=== PATIENT | male | born 1935 | race Caucasian/White ===

== ENCOUNTER 2016-11-17 16:43 | Emergency (ER) | payer OTHER, MEDICARE ==
[~2016-11-17] VITALS: Ht 174 cm; Wt 105.2 kg
[~2016-11-17 16:43] MED LIST: AMLODIPINE BES2.5 MG PO; ASPIR 8181 MG PO; ATORVASTATIN CA20 MG PO; BLM PO; COMBIGAN 0.2%-0.5 ML OP; COUMADIN 5 MG TA5 MG PO; FENTANYL50 MCG/HR TOP; GABAPENTIN400 MG PO; GLIMEPIRIDE4 MG PO; HUMALOG MIX75/253 ML SC; LEVOTHYROXIN0.075 M1 PO; MOMETASONE FUROA0.1% TOP; OMEPRAZOLE40 MG PO; PERCOCET 325 MG1 TA2 PO; PREDNISONE10 MG PO
[2016-11-17] MEDS ORDERED: LANTUS SOL100 UNIT/1 SC (17:17)
[2016-11-17] MEDS ORDERED: ATORVASTATIN CA20 M1 PO (17:18)
[2016-11-17] MEDS ORDERED: GABAPENTIN400 M2 PO (17:19)
[2016-11-17] MEDS ORDERED: GLIMEPIRIDE4 M1 PO (17:19)
[2016-11-17] MEDS ORDERED: OMEPRAZOLE40 M1 PO (17:19)
[2016-11-17] MEDS ORDERED: LEVOTHYROXINE75 MCG PO (17:20)
[2016-11-17] MEDS ORDERED: AMLODIPINE BESYL5 M1 PO (17:20)
[2016-11-17] MEDS ORDERED: HUMALOG MI100 UNIT/3 SC (17:21)
[2016-11-17] MEDS ORDERED: SIMBRINZA 1%-0.28 ML OPH (17:21)
[2016-11-17] MEDS ORDERED: OXYCODONE-ACET1 EACH PO (17:22)
[2016-11-17] MEDS ORDERED: METOPROLOL TART50 M1 PO (17:22)
[2016-11-17] MEDS ORDERED: FENTANYL1 EAC3 TOP (17:22)
[2016-11-17] MEDS ORDERED: CENTRUM SILVER1 EAC3 PO (17:23)
[2016-11-17] MEDS ORDERED: XARELTO15 M2 PO (17:23)
[2016-11-17] MEDS ORDERED: FISH OIL500 M1 PO (17:24)
[2016-11-17 17:42] LABS: ABSOLUTE BASOPHIL COUNT 0 /CUMM (0.0-0.2); ABSOLUTE EOSINOPHIL COUNT 0.2 /CUMM (0.0-0.7); ABSOLUTE GRANULOCYTE CT 4.9 /CUMM (1.4-6.5); ABSOLUTE LYMPH COUNT 2.6 /CUMM (1.2-3.4); ABSOLUTE MONOCYTE COUNT 0.8 /CUMM (0.10-0.60); BASOPHIL % 0.3 % (0.0-2.0); EOSINOPHIL % 2.6 % (0-5); GRANULOCYTE % 57.7 % (42.2-75.2); HEMATOCRIT 38.3 % (42-52); MEAN CORPUSCULAR HGB 29.5 PG (27.0-31.0); MEAN CORPUSCULAR VOLUME 89.2 FL (80.0-94.0); MEAN PLATELET VOLUME 10.6 FL (7.4-10.4); PLATELET COUNT 125 /CUMM (130-400); RBC DISTRIBUTION WIDTH 13.3 % (11.5-14.5); RED BLOOD CELL CT 4.29 /CUMM (4.70-6.10); WHITE BLOOD CELL COUNT 8.5 /CUMM (4.8-10.8)
--- NOTE | 2016-11-17 18:06 | RADIOLOGY REPORT ---
EXAMINATION: XR CHEST CLINICAL INFORMATION: 81-year-old male presented with cough, crackles at left lower lobe. Evaluate for pneumonia. COMPARISON: Chest done on 04/28/2015. TECHNIQUE: 2 views of the chest, 3 images were obtained. FINDINGS: Both lung nolasco are symmetrically expanded and appear clear. The cardiomediastinal silhouette is within normal limits. There is no pleural effusion present. Multilevel degenerative changes are noted in the spine. No significant change since prior study. IMPRESSION: No acute cardiopulmonary disease.
--- NOTE | 2016-11-17 18:09 | ED INFLUENZA/URI COMPLAINT ---
History of Present Illness General Chief Complaint: Upper Respiratory Sx/Fever Stated Complaint: SORE THROAT; FEVER Source: patient Exam Limitations: no limitations Vital Signs & Intake/Output Vital Signs & Intake/Output ED Intake and Output 11/18 0000 11/17 1200 Intake Total Output Total Balance Patient 232 lb Weight Allergies Coded Allergies: NO KNOWN ALLERGIES (11/17/16) Reconcile Medications Amlodipine Besylate 5 MG TABLET 1 TAB PO DAILY BP (Reported) Atorvastatin Calcium 20 MG TABLET 1 TAB PO QPM CHOLESTEROL (Reported) Brinzolamide/Brimonidine Tart (Simbrinza 1%-0.2% Eye Drops) 1 %-0.2 % DROPS.SUSP 1 DROP OPH BID BOTH EYES (Reported) Fentanyl 50 MCG/HOUR PATCH.TD72 1 PAT TOP Q3D PAIN (Reported) Gabapentin 400 MG CAPSULE 1 CAP PO TID NERVE PAIN (Reported) Glimepiride 4 MG TABLET 1 TAB PO BID DM (Reported) Insulin Glargine,Hum.rec.anlog (Lantus Solostar) 100 UNIT/ML (3 ML) INSULN.PEN 30 UNIT SC QPM DM (Reported) Insulin NPL/Insulin Lispro (Humalog Mix 75-25 Kwikpen) 100 UNIT/ML (75-25) INSULN.PEN 60 UNITS SC BID DM (Reported) Levothyroxine Sodium 75 MCG TABLET 1 TAB PO DAILY THYROID (Reported) Metoprolol Tartrate 50 MG TABLET 1 TAB PO DAILY BP (Reported) Multivit-Min/FA/Lycopen/Lutein (Centrum Silver Tablet) 0.4 MG-300 MCG-250 MCG TABLET 1 TAB PO DAILY SUPPLEMENT (Reported) [place]-3 Fatty Acids (Fish Oil) (Unknown Strength) CAPSULE (Unknown Dose) PO BID SUPPLEMENT (Reported) Omeprazole 40 MG CAPSULE. 1 CAP PO PRN GI (Reported) Oxycodone HCl/Acetaminophen (Oxycodone-Acetaminophen 5-325) 5 MG-325 MG TABLET 1 TAB PO BID PAIN (Reported) Rivaroxaban (Xarelto) 15 MG TABLET 1 TAB PO DAILY BLOOD THINNER (Reported) Triage Note: TRIAGE: PT TO ER WITH DAUGHTER AND NEPHEW. C/C HEAD PAIN, COUGHING, SOB, SORE THROAT, ESOPHAGEAL PAIN AND FEVER. ONSET 4 DAYS AGO WITH COUGHING. COUGH HAS BEEN NONPRODUCTIVE. LAST DOSE OF ADVIL APPROX 1 HR FISHER SEAL. TEMP 98.2 AT TRIAGE. Triage Nurses Notes Reviewed? yes HPI: 81-year-old male with 4 days of flulike illness, headaches, congestion, sore throat, nausea, decreased appetite, coughing congestion. Denies abdominal pain. He is taking [id number] medication with some relief. He took Tylenol prior to arrival, stated his temperature was 101 earlier today. He has a sick contact with the flu. His symptoms are going on for 4 days. He is drinking large amounts of water. He does not feel dehydrated. Symptoms are moderate (HOLLY LINARES) Past History Travel History Traveled to [place] past 21 day No Medical History Any Pertinent Medical History? see below for history Neurological: NONE EENT: NONE Cardiovascular: hypertension, PVD Respiratory: NONE Gastrointestinal: NONE Hepatic: NONE Renal: NONE Musculoskeletal: L LEG FX/SX/HDWE, R AKA Psychiatric: NONE Endocrine: diabetes Blood Disorders: DVT Cancer(s): NONE JR. SYSTEMS ADMINISTRATOR/Reproductive: NONE Surgical History Surgical History: R BKA L LEG FX/SX/RODS Psychosocial History What is your primary language Hong Konger Tobacco Use: Never used ETOH Use: denies use Illicit Drug Use: denies illicit drug use Family History Hx Contributory? No (HOLLY LINARES) Review of Systems Review of Systems Constitutional: Reports: see HPI. EENTM: Reports: see HPI. Respiratory: Reports: see HPI. Cardiovascular: Reports: no symptoms. GI: Reports: no symptoms. Genitourinary: Reports: no symptoms. Musculoskeletal: Reports: no symptoms. Skin: Reports: no symptoms. Neurological/Psychological: Reports: no symptoms. Hematologic/Endocrine: Reports: no symptoms. Immunologic/Allergic: Reports: no symptoms. All Other Systems: Reviewed and Negative (HOLLY LINARES) Physical Exam Physical Exam General Appearance: well developed/nourished, no apparent distress, alert, awake , comfortable Head: atraumatic, normal appearance Eyes: Bilateral: normal appearance, PERRL. Ears, Nose, Throat: moist mucous membrane, hearing grossly normal, Tympanic normal, pharyngeal erythema (MILD), NO PERITONSILLAR ABSCESS. nO DIFFICULTY SWALLOWING Neck: normal inspection, supple, full range of motion, trachea midline Respiratory: chest non-tender, no respiratory distress, crackles (MILD LLL) Cardiovascular: regular rate/rhythm Back: normal inspection, normal range of motion Extremities: normal inspection, normal capillary refill, normal range of motion, no edema, R AKA NOTED Neurologic/Psych: no motor/sensory deficits, awake, alert, oriented x 3 Skin: intact, normal color, warm/dry Lymphatic: no anterior cervical kalina Core Measures Severe Sepsis Present: No Septic Shock Present: No (PHOENIX VILLALOBOS,HOLLY) Progress Differential Diagnosis: influenza, meningitis, neutropenia, otitis, pneumonia, pharyngitis, sinusitis Plan of Care: Laboratory Tests 11/17/16 2019: Lactic Acid Cancelled Diagnostic Imaging: Viewed by Me: Radiology Read. Discussed w/RAD: Radiology Read. CXR Impression: PATIENT: YASH NICOLE PRESENT AGE: 81 PATIENT ACCOUNT NO: [id number] : 33 LOCATION: [facility] ORDERING PHYSICIAN: HOLLY VILLALOBOS SERVICE DATE: 11/17/16 EXAM TYPE: RAD - XRY-CHEST XRAY, PA AND LATERAL EXAMINATION: XR CHEST CLINICAL INFORMATION: 81-year-old male presented with cough, crackles at left lower lobe. Evaluate for pneumonia. COMPARISON: Chest done on 04/28/2015. TECHNIQUE: 2 views of the chest, 3 images were obtained. FINDINGS: Both lung nolasco are symmetrically expanded and appear clear. The cardiomediastinal silhouette is within normal limits. There is no pleural effusion present. Multilevel degenerative changes are noted in the spine. No significant change since prior study. IMPRESSION: No acute cardiopulmonary disease. DICTATED BY: KAREEM WILCOX MD DATE/TIME DICTATED:1801 MANAGER CORPORATE STRATEGY:KATIE Initial ED EKG: NSR, rate (65), no ST T wave changes Rhythm Strip: normal sinus rhythm Comments: Patient's workup is essentially normal. He does have mild increase in his creatinine from baseline 1.3-1.5. He states he does not know of any previous kidney issues. I recommended that he is not taking any Advil and follows up with his primary care doctor in the next 2 weeks, he is to take plenty of IV fluids. His flu test was negative, his rapid strep was negative, cultures were sent, blood cultures were sent, his exam is largely benign except for mild crackles in his left lung but his chest x-ray is negative. His white count is normal. He likely has mild flulike virus and does not require any antibiotics at this time. He should return with worsening symptoms or follow up with his primary care doctor this week. NAVARRO MAZARIEGOS (HOLLY LINARES) Departure Departure Disposition: HOME OR SELF CARE Condition: Stable Clinical Impression Primary Impression: Viral syndrome Referrals: CAMILLE KWON,MANJU Perry (PCP/Family) Additional Instructions: TYLENOL NEEDED , DRINK PLENTY OF FLUIDS. AVOID MOTRIN/ADVIL AND ALEVE YOUR KIDNEY FUNCTION WAS SLIGHTLY ELEVATED TODAY TO 1.5 (LAST TEST WAS 1.2 3 YEARS AGO). PLEASE HAVE THIS RECHECKED IN 2 WEEKS BY YOUR DOCTOR TO ENSURE IT IS NOT GETTING WORSE. RETURN WITH CONTINUED FEVER OR FLU LIKE ILLNESS, VOMITING , SHORTNESS OF BREATH OR DIFFICLUTY SWALLOWING. Departure Forms: Customer Survey General Discharge Information (HOLLY LINARES) PA/ZOOLOGY PROFESSOR Co-Sign Statement Statement: ED Attending supervision documentation- [X] I saw and evaluated the patient. I have also reviewed all the pertinent lab results and diagnostic results. I agree with the findings and the plan of care as documented in the PA's/ZOOLOGY PROFESSOR's documentation. [X] I have reviewed the ED Record and agree with the PA's/ZOOLOGY PROFESSOR's documentation. [] Additions or exceptions (if any) to the PAs/ZOOLOGY PROFESSOR's note and plan are summarized below: [] (DELILAH KWON,MARIO Parker) Additional Instructions: TYLENOL NEEDED , DRINK PLENTY OF FLUIDS. AVOID MOTRIN/ADVIL AND ALEVE YOUR KIDNEY FUNCTION WAS SLIGHTLY ELEVATED TODAY TO 1.5 (LAST TEST WAS 1.2 3 YEARS AGO). PLEASE HAVE THIS RECHECKED IN 2 WEEKS BY YOUR DOCTOR TO ENSURE IT IS NOT GETTING WORSE. RETURN WITH CONTINUED FEVER OR FLU LIKE ILLNESS, VOMITING , SHORTNESS OF BREATH OR DIFFICLUTY SWALLOWING. Departure Forms: Customer Survey General Discharge Information
[2016-11-17 18:44] VITALS: BP 174/81
== END 2016-11-17 19:01 ==
LOC: ERH 16:43
PROVIDERS: Physician Assistant Surgical
DX: B34.9 Viral infection, unspecified (principal)
CPT/HCPCS: 87040; 87804; 87804-59; 93005; 93010

== ENCOUNTER 2018-01-03 12:55 | Emergency (ER) | payer OTHER, MEDICARE ==
[~2018-01-03] VITALS: Ht 172.7 cm; Wt 101.2 kg
[~2018-01-03 12:55] MED LIST changes: +AMLODIPINE BESYL5 M1 PO; +ATORVASTATIN CA20 M1 PO; +CENTRUM SILVER1 EAC3 PO; +FENTANYL1 EAC3 TOP; +FISH OIL500 M1 PO; +GABAPENTIN400 M2 PO; +GLIMEPIRIDE4 M1 PO; +GOLYTELY SOLU4000 ML PO; +HUMALOG MI100 UNIT/3 SC; +LANTUS SOL100 UNIT/1 SC; +LEVOTHYROXINE75 MCG PO; +METOPROLOL TART50 M1 PO; +MIRALAX119 GM PO; +OMEPRAZOLE40 M1 PO; +OXYCODONE-ACET1 EACH PO; +SIMBRINZA 1%-0.28 ML OPH; +XARELTO15 M2 PO
[2018-01-03 16:32] VITALS: BP 165/92
--- NOTE | 2018-01-03 16:37 | ED NOSE COMPLAINT ---
History of Present Illness General Chief Complaint: General Adult Stated Complaint: " I FEEL LIKE SOMETHING IS STUCK IN MY NOSE" Source: patient, aid Exam Limitations: no limitations Vital Signs & Intake/Output Vital Signs & Intake/Output Vital Signs Date Time Temp Pulse Resp B/P B/P Pulse O2 O2 Flow FiO2 Mean Ox Delivery Rate 01/03 1632 97.5 65 18 165/92 95 Room Air 01/03 1414 96.7 78 18 139/87 95 Room Air ED Intake and Output 01/04 0000 01/03 1200 Intake Total 200 Output Total Balance 200 Intake, Oral 200 Patient 223 lb Weight Weight Reported by Patient Measurement Method Allergies Coded Allergies: NO KNOWN ALLERGIES (11/17/16) Reconcile Medications Amlodipine Besylate 5 MG TABLET 1 TAB PO DAILY BP (Reported) Amoxicillin/Potassium Clav (Augmentin 875-125 Tablet) 875 MG-125 MG TABLET 1 TAB PO BID SINSUITIS Atorvastatin Calcium 20 MG TABLET 1 TAB PO QPM CHOLESTEROL (Reported) Brinzolamide/Brimonidine Tart (Simbrinza 1%-0.2% Eye Drops) 1 %-0.2 % DROPS.SUSP 1 DROP OPH BID BOTH EYES (Reported) Fentanyl 50 MCG/HOUR PATCH.TD72 1 PAT TOP Q3D PAIN (Reported) Fluticasone Propionate (Flonase Allergy Relief) 50 MCG/ACTUATION SPRAY.SUSP 2 SPRAY NASB ONCE DAILY PRN CONGESTION Gabapentin 400 MG CAPSULE 1 CAP PO TID NERVE PAIN (Reported) Glimepiride 4 MG TABLET 1 TAB PO BID DM (Reported) Insulin Glargine,Hum.rec.anlog (Lantus Solostar) 100 UNIT/ML (3 ML) INSULN.PEN 30 UNIT SC QPM DM (Reported) Insulin NPL/Insulin Lispro (Humalog Mix 75-25 Kwikpen) 100 UNIT/ML (75-25) INSULN.PEN 60 UNITS SC BID DM (Reported) Levothyroxine Sodium 75 MCG TABLET 1 TAB PO DAILY THYROID (Reported) Metoprolol Tartrate 50 MG TABLET 1 TAB PO DAILY BP (Reported) Multivit-Min/FA/Lycopen/Lutein (Centrum Silver Tablet) 0.4 MG-300 MCG-250 MCG TABLET 1 TAB PO DAILY SUPPLEMENT (Reported) [place]-3 Fatty Acids (Fish Oil) (Unknown Strength) CAPSULE (Unknown Dose) PO BID SUPPLEMENT (Reported) Omeprazole 40 MG CAPSULE.DR 1 CAP PO PRN GI (Reported) Oxycodone HCl/Acetaminophen (Oxycodone-Acetaminophen 5-325) 5 MG-325 MG TABLET 1 TAB PO BID PAIN (Reported) Peg 3350/Na Sulf,Bicarb,Cl/KCl (Golytely Solution) 236-22.74G SOLN.RECON 1 KIT PO X1 PRN CONSTIPATION Polyethylene Glycol 3350 (Miralax) 17 GRAM/DOSE POWDER 17 GM PO BID CONSTIPATION mix with water, juice, soda, coffee or tea Rivaroxaban (Xarelto) 15 MG TABLET 1 TAB PO DAILY BLOOD THINNER (Reported) Triage Note: PT PRESENTS TO THE ER "IT FEELS LIKE SOMETHING IS IN MY NOSE AND LEFT EYE." PT THINKS ITS A BUG. Triage Nurses Notes Reviewed? yes Onset: Abrupt Duration: week(s): (2), changing over time, continues in ED Timing: single episode today Injury Environment: home Severity: mild, moderate Severity Numbers: 4 No Modifying Factors: none HPI: 82-year-old male past medical history of hypertension, CVA, DVT, diabetes presents for evaluation of congestion left naris and left maxillary sinus pressure. Patient states that he'll be going on for the past 2 weeks. He states that he feels like there is a foreign body in his nose. He denies any trauma to the area putting anything in his nose or picking his nose. No epistaxis. No fever. No chest pain shortness of breath. Has not taken any medicine for this. He states that it feels like there is "bugs crawling in my left nostril into my left sinus". His mental status is at baseline according to his aid. No nausea vomiting or diarrhea. No rashes. (Todd Benson) Past History Travel History Traveled to [place] past 21 day No Medical History Any Pertinent Medical History? see below for history Neurological: CVA, delerium, electrolyte abnormalities EENT: NONE Cardiovascular: hypertension, PVD Respiratory: NONE Gastrointestinal: constipation Hepatic: NONE Renal: NONE Musculoskeletal: L LEG FX/SX/HDWE R AKA Psychiatric: NONE Endocrine: diabetes Blood Disorders: DVT Cancer(s): NONE HOTEL MAINTENANCE WORKER/Reproductive: NONE Surgical History Surgical History: R BKA L LEG FX/SX/RODS Psychosocial History What is your primary language Omani Tobacco Use: Never used Family History Hx Contributory? No (Todd Benson) Review of Systems Review of Systems Constitutional: Reports: no symptoms. EENTM: Reports: nasal congestion, nasal pain. Respiratory: Reports: no symptoms. Cardiovascular: Reports: no symptoms. GI: Reports: no symptoms. Genitourinary: Reports: no symptoms. Musculoskeletal: Reports: no symptoms. Skin: Reports: no symptoms. Neurological/Psychological: Reports: no symptoms. Hematologic/Endocrine: Reports: no symptoms. Immunologic/Allergic: Reports: no symptoms. All Other Systems: Reviewed and Negative (Todd Benson) Physical Exam Physical Exam General Appearance: well developed/nourished, no apparent distress, alert, awake Head: atraumatic, normal appearance Eyes: Bilateral: normal appearance, PERRL, EOMI. Ears: Bilateral: canal normal, Tympanic normal. Nose: discharge (white), the nasal mucosa is mildly erythematous and boggy. There is small amount of whitish clear discharge, the left maxillary sinus is tender to palpation Mouth/Throat: normal mouth inspection, pharynx normal Neck: normal inspection, supple, full range of motion Cardiovascular/Respiratory: normal breath sounds, normal peripheral pulses, regular rate/rhythm, no respiratory distress Gastrointestinal: soft, nontender, nondistended Back: normal inspection, normal range of motion Neurologic/Psych: no motor/sensory deficits, awake, alert, oriented x 3, normal gait Skin: intact, normal color, warm/dry (Todd Benson) Progress Differential Diagnoses I considered the following diagnoses in my evaluation of the patient: [Sinusitis , nasal foreign body, dacryocystitis, viral URI, sinus mass] Plan of Care: Orders Procedure Date/time Status URINALYSIS 01/04 1644 Complete COMPREHENSIVE METABOLIC PANEL 01/04 1644 Complete CBC WITHOUT DIFFERENTIAL 01/04 1644 Complete Laboratory Tests 01/03/18 1720: Urine Color YEL, Urine Clarity CLEAR, Urine pH 6.0, Ur Specific [place] >= 1.030 , Urine Protein 100 H, Urine Ketones NEG, Urine Nitrite NEG, Urine Bilirubin NEG, Urine Urobilinogen 0.2, Ur Leukocyte Esterase NEG, Ur Microscopic SEDIMENT EXAMINED, Urine RBC FEW H, Urine WBC RARE, Ur Epithelial Cells RARE, Urine Hemoglobin NEG, Urine Glucose NEG 01/03/18 1700: Anion Gap 10, Estimated GFR 41 L, BUN/Creatinine Ratio 18.8, Glucose 129 H, Calcium 9.2, Total Bilirubin 0.6, AST 64 H, ALT 53, Alkaline Phosphatase 77, Total Protein 7.6, Albumin 4.2, Globulin 3.4, Albumin/Globulin Ratio 1.2, CBC w Diff NO MAN DIFF REQ, RBC 4.44 L, MCV 89.4, MCH 30.0, MCHC 33.5, RDW 13.3, MPV 10.8 H, Gran % 47.4, Lymphocytes % 37.2, Monocytes % 11.3 H, Eosinophils % 3.4 , Basophils % 0.7, Absolute Granulocytes 4.4, Absolute Lymphocytes 3.5 H, Absolute Monocytes 1.1 H, Absolute Eosinophils 0.3, Absolute Basophils 0.1 Patient seen and evaluated. He has left-sided maxillary sinus tenderness. No foreign bodies noted. He is afebrile nontoxic-appearing. Basic blood work is within normal limits. A CT scan of the sinuses does show some signs of sinusitis. Patient be covered with Augmentin. Follow-up with ear nose and throat. Flonase for congestion and sinus pressure apply warm compresses Tylenol for pain/fever. Discussed return precautions. Case discussed with Dr. Berry he agrees. Diagnostic Imaging: Viewed by Me: CT Scan. Discussed w/RAD: CT Scan. Radiology Impression: PATIENT: YASH NICOLE PRESENT AGE : 82 PATIENT ACCOUNT NO: [id number] : 33 LOCATION: [facility] ORDERING PHYSICIAN: Todd VILLALOBOS SERVICE DATE: 01/03/18 EXAM TYPE: CAT - CT FACE/SINUS WITHOUT CONT EXAMINATION: CT SINUS WITHOUT CONTRAST CLINICAL INFORMATION: Sinusitis, Foreign body COMPARISON: None TECHNIQUE: Multidetector helical imaging was performed in the axial plane with generation of coronal and sagittal reformatted images. DLP: 348.64 mGy-cm FINDINGS: FRONTAL SINUSES AND DRAINAGE PATHWAYS: The left frontal sinus is developed an area and a clear. MAXILLARY SINUSES AND DRAINAGE PATHWAYS: Normal. The infundibula are patent. ETHMOID SINUSES: Minimal mucosal thickening of multiple bilateral ethmoid air cells noted. No air-fluid level. The periosteal lining is normal. SPHENOID SINUSES AND DRAINAGE PATHWAYS: Normal. NASAL CAVITY/NASOPHARYNX: Mild-to- moderate mucosal congestion of the nasal turbinates noted. There is mild nasal septal deviation towards right side. The nasopharynx is symmetric. ADDITIONAL RELEVANT FINDINGS: The TMJs articulate normally. The orbits and skull base soft tissues are unremarkable. The middle ear cavities and mastoid air cells are clear. Limited evaluation demonstrates no acute intracranial findings. Multiple dental fillings of mandibular and maxillary teeth noted. Partial visualization of degenerative changes of the upper cervical spine. IMPRESSION: Mild to moderate mucosal congestion of nasal turbinate. Mild mucosal thickening of ethmoid air cells. The paranasal sinuses are otherwise clear. No air-fluid level. No radiodense foreign body. DICTATED BY: Luana Appiah MD DATE/TIME DICTATED:01/03/181808 ACTUARIAL CONSULTANT:KATIE DATE/TIME TRANSCRIBED:1808 CONFIDENTIAL, DO NOT COPY WITHOUT APPROPRIATE AUTHORIZATION. < Electronically signed in Other Vendor System> SIGNED BY: Luana Appiah MD 01/03/181821 Initial ED EKG: none (Todd Benson) Departure Departure Disposition: HOME OR SELF CARE Condition: Stable Clinical Impression Primary Impression: Sinusitis Qualifiers: Sinusitis location: maxillary Chronicity: acute Recurrence: non- recurrent Qualified Code: J01.00 - Acute maxillary sinusitis, unspecified Referrals: Halie KWON,Chris Rosen MD,Juan (PCP/Family) Additional Instructions: Take antibiotics as directed for course. Flonase as needed for congestion. Make a follow-up APPT with your primary care doctor and provided EAR nose and throat doctor as soon as possible. Monitor symptoms return with any concerns. Departure Forms: Customer Survey General Discharge Information Prescriptions: Current Visit Scripts Amoxicillin/Potassium Clav (Augmentin 875-125 Tablet) 1 TAB PO BID #14 TAB Fluticasone Propionate (Flonase Allergy Relief) 2 SPRAY NASB ONCE DAILY PRN CONGESTION #1 BOT (Todd Benson) PA/EMERGENCY ROOM TECH Co-Sign Statement Statement: ED Attending supervision documentation- [X] I saw and evaluated the patient. I have also reviewed all the pertinent lab results and diagnostic results. I agree with the findings and the plan of care as documented in the PA's/EMERGENCY ROOM TECH's documentation. Patient presents for evaluation of sinus pressure and congestion. Physical examination reveals a comfortable appearing patient with no apparent rhinorrhea. [] I have reviewed the ED Record and agree with the PA's/EMERGENCY ROOM TECH's documentation. [] Additions or exceptions (if any) to the PAs/EMERGENCY ROOM TECH's note and plan are summarized below: [] (Kristi KWON,Jere Daily)
[2018-01-03 17:08] LABS: ABSOLUTE BASOPHIL COUNT 0.1 /CUMM (0.0-0.2); ABSOLUTE EOSINOPHIL COUNT 0.3 /CUMM (0.0-0.7); ABSOLUTE GRANULOCYTE CT 4.4 /CUMM (1.4-6.5); ABSOLUTE LYMPH COUNT 3.5 /CUMM (1.2-3.4); ABSOLUTE MONOCYTE COUNT 1.1 /CUMM (0.10-0.60); BASOPHIL % 0.7 % (0.0-2.0); EOSINOPHIL % 3.4 % (0-5); GRANULOCYTE % 47.4 % (42.2-75.2); HEMATOCRIT 39.7 % (42-52); MEAN CORPUSCULAR HGB CONC 33.5 G/DL (33.0-37.0); MEAN CORPUSCULAR VOLUME 89.4 FL (80.0-94.0); MEAN PLATELET VOLUME 10.8 FL (7.4-10.4); PLATELET COUNT 138 /CUMM (130-400); RBC DISTRIBUTION WIDTH 13.3 % (11.5-14.5); RED BLOOD CELL CT 4.44 /CUMM (4.70-6.10); WHITE BLOOD CELL COUNT 9.4 /CUMM (4.8-10.8)
--- NOTE | 2018-01-03 18:22 | CT SCAN REPORT ---
EXAMINATION: CT SINUS WITHOUT CONTRAST CLINICAL INFORMATION: Sinusitis, Foreign body COMPARISON: None TECHNIQUE: Multidetector helical imaging was performed in the axial plane with generation of coronal and sagittal reformatted images. DLP: 348.64 mGy-cm FINDINGS: FRONTAL SINUSES AND DRAINAGE PATHWAYS: The left frontal sinus is developed an area and a clear. MAXILLARY SINUSES AND DRAINAGE PATHWAYS: Normal. The infundibula are patent. ETHMOID SINUSES: Minimal mucosal thickening of multiple bilateral ethmoid air cells noted. No air-fluid level. The periosteal lining is normal. SPHENOID SINUSES AND DRAINAGE PATHWAYS: Normal. NASAL CAVITY/NASOPHARYNX: [id number] mucosal congestion of the nasal turbinates noted. There is mild nasal septal deviation towards right side. The nasopharynx is symmetric. ADDITIONAL RELEVANT FINDINGS: The TMJs articulate normally. The orbits and skull base soft tissues are unremarkable. The middle ear cavities and mastoid air cells are clear. Limited evaluation demonstrates no acute intracranial findings. Multiple dental fillings of mandibular and maxillary teeth noted. Partial visualization of degenerative changes of the upper cervical spine. IMPRESSION: Mild to moderate mucosal congestion of nasal turbinate. Mild mucosal thickening of ethmoid air cells. The paranasal sinuses are otherwise clear. No air-fluid level. No radiodense foreign body.
[2018-01-03] MEDS ORDERED: AUGMENTIN 875-1 EACH PO (18:35)
[2018-01-03] MEDS ORDERED: FLONASE ALLERG9.9 ML NASB (18:35)
== END 2018-01-03 18:44 ==
LOC: ERH 12:55
PROVIDERS: Physician Assistant Medical
DX: J32.9 Chronic sinusitis, unspecified (principal)
CPT/HCPCS: 81001

== ENCOUNTER → 2018-05-06 | Day surgery (SDC) | payer OTHER, MEDICARE ==
[~2018-05-06] VITALS: Ht 177.8 cm; Wt 93.0 kg
[~2018-05-06] MED LIST changes: +AUGMENTIN 875-1 EACH PO; +FLONASE ALLERG9.9 ML NASB
--- NOTE | 2018-05-06 12:35 | Operative Report ---
Operative/Inv Procedure Report Surgery Date: 05/06/18 Name of Procedure: Cataract extraction lens implantation trabeculectomy with mitomycin-C left eye Pre-Operative Diagnosis: Age-related cataract and poorly controlled glaucoma left eye 20/80 vision Post-Operative Diagnosis: Same Estimated Blood Loss: none Surgeon/General Car Supervisor Yard: Gianni Cormier MD Anesthesia: local monitored anesthesi, Subtenon's anesthesia Complications: None Operative/Procedure Note Note: The patient had uncontrolled intraocular pressure and was on maximal medical therapy. She was consented for cataract extraction and trabeculectomy of the left eye with mitomycin-C. Mitomycin was used in this case because the patient was having concurrent intraocular surgery. The patient was brought to the operating room and standard monitoring equipment was attached. The patient was prepped and draped in the usual fashion for sterile intraocular surgery. A lid speculum was used to retract the lids. A small temporal incision was made with an I- knife and non-preserved lidocaine was introduced into the anterior chamber to provide anesthesia. The patient was asked to look down. Conjunctiva and Tenon's tissue was opened at the 12 o'clock position using non-toothed forceps and a Vannas scissors. A fornix based conjunctival peritomy was continued using Michelle's scissors. Additional anesthesia was achieved by infusing a 50:50 mixture of 2 percent lidocaine and 0.75 Marcaine which had been mixed previously underneath the conjunctiva and tenon's tissue. The sclera at the limbus was cleaned off using a 69 blade and a Weck-Niurka sponge. A partial thickness groove was made tangential to the limbus approximately 1.5 mm back using the same 69 blade. A crescent knife was used to tunnel from this incision into clear cornea and then the anterior chamber was entered with a 2.4 mm keratome. 1 mL of non- preserved lidocaine was introduced into the anterior chamber to provide additional anesthesia. The anterior chamber was then filled and deepened with viscoelastic. A curvilinear capsulorrhexis was achieved using a 30-gauge needle and is a cystotome and capsulorrhexis was finished using a Utrata forceps. The lens was then hydrodissected with balanced salt solution and found to be rotatable. The lens was emulsified using phacoemulsification and a modified four-quadrant cracking technique. The residual cortical material was removed using automated irrigation and aspiration and as much of the anterior capsular rim was cleaned as well as possible. The posterior capsule was cleaned first with the automated machine on a low setting and then manually with a Sunny squeegee. The capsular bag was deepened with viscoelastic. The lens a SA60 WF 20.0 diopter placed into the bag under direct visualization and rotated so that the haptics were at 12 and 6:00. Several punches of the posterior wound lip were taken with a Fara Descemet punch. A Becker forceps was used to grasp the iris and a peripheral iridectomy was fashioned using the Vancarmen scissors. Viscoelastic was then removed from the eye by flushing it out and then by automated irrigation and aspiration. The trabeculectomy flap was sutured using 2 interrupted 10-0 nylon sutures whose knots were trimmed and buried. The flap was assessed for flow but no additional sutures were placed. Mitomycin-C 0.4 mg/mL was placed on several previously cut Weck-Niurka sponges and held underneath the tenons fascia for approximately 90 seconds keeping the edge of the conjunctival surface away from the mitomycin. The instruments used to handle the mitomycin were removed from the field and the area copiously irrigated with balanced salt solution. The conjunctiva was reapproximated to the eye wall using 2 interrupted and one running 10-0 nylon suture whose knots were trimmed and rotated underneath the tissue. The eye was pressurized to an adequate tone by introducing balanced salt solution into the anterior chamber. This caused the bleb to elevate. The bleb area was assessed for leaks and since there were none. 1/10 of a cc of vancomycin solution was introduced into the anterior chamber to provide antibiotic prophylaxis. The and the lid speculum was removed. The eye was patched over antibiotic, steroid and a combination of antibiotic and steroid ointment. The eye was then shielded. Patient was removed from the operating room in stable condition and brought to same-day surgery having tolerated the procedure well. The eye was pressurized to a normal tone.
== END ==
LOC: STS 01:15
DX: H25.89 Other age-related cataract (principal); H40.10X0 Unspecified open-angle glaucoma, stage unspecified; E11.9 Type 2 diabetes mellitus without complications; Z79.4 Long term (current) use of insulin; I10 Essential (primary) hypertension
CPT/HCPCS: J2001; J2250; J7315; V2632